=== PATIENT | female | born 1975 | race Caucasian/White ===

== ENCOUNTER → 2022-07-18 | Outpatient (CLI) | payer OTHER ==
--- NOTE | 2022-07-26 08:17 | MM ---
Reason for Exam: Screening (asymptomatic). Last screening mammogram was performed 12 month(s) ago. Patient History: Menarche at age 13. First Full-Term at age 17. Last menstrual period: 07/18/2022 Risk Values: Pamela 5 year model risk: 0.6%. NCI Lifetime model risk: 6.9%. Prior Study Comparison: 06/25/2020 Bilateral MG 3D screening mammo w/cad, [facility]. 06/27/2021 Bilateral MG 3D screening mammo w/cad, [facility]. Tissue Density: The breast tissue is heterogeneously dense. This may lower the sensitivity of mammography. Findings: Analyzed By CAD. There is no suspicious group of microcalcifications or new suspicious mass in either breast. Overall Assessment: Benign, BI-RAD 2 Management: Screening Mammogram of both breasts in 1 year. A clinical breast exam by your physician is recommended on an annual basis and results should be correlated with mammographic findings. Electronically signed and approved by: Yusuf Huber M.D. Radiologis
== END | disposition home or self-care (01) ==
LOC: RADMAMWWP 09:39
PROVIDERS: ATTEND Family Medicine
DX: Z12.31 Encounter for screening mammogram for malignant neoplasm of breast (principal)
CPT/HCPCS: 77063; 77067

== ENCOUNTER 2022-09-18 11:50 | Day surgery (SDC) | payer OTHER ==
[2022-09-13 15:47] VITALS: BMI 22.8
[2022-09-18 12:39] VITALS: TEMP 97.1
[2022-09-18] MEDS ORDERED: LACTATED RINGERS 1,000 ML IV ONE (12:40)
[2022-09-18] MEDS ORDERED: LACTATED RINGERS 1,000 ML IV SCH (13:20)
[2022-09-18] MEDS ORDERED: LIDOCAINE 1% (10MG/ML) FOR IV START INTRADERMA PRN (13:20)
[2022-09-18] MEDS ORDERED: PROPOFOL 10 MG/ML 20 ML VIAL IV ONE (13:22)
[2022-09-18] MEDS ORDERED: LIDOCAINE 2% INJ 20 MG/ML (2 ML VIAL) ONE (13:22)
--- NOTE | 2022-09-18 13:23 | P.GSHP ---
History of Present Illness H&P Date: 09/18/22 Chief Complaint: Positive colon guard test This a 47-year-old female who has had some issues with constipation. Patient had a recent positive colon guard test. She presents today for colonoscopy. Past Medical History Additional Past Medical History / Comment(s): + COLOGARD History of Any Multi-Drug Resistant Organisms: None Reported Past Surgical History: Cholecystectomy, Orthopedic Surgery Additional Past Surgical History / Comment(s): SCREW/PLATE IN LT FOOT R/T BUNION SX Past Anesthesia/Blood Transfusion Reactions: No Reported Reaction Smoking Status: Former smoker - Past Family History Mother Family Medical History: Cancer Medications and Allergies Home Medications Medication Instructions Recorded Confirmed Type ALPRAZolam [Xanax] 0.25 mg PO BID PRN 09/13/22 09/18/22 History Allergies Allergy/AdvReac Type Severity Reaction Status Date / Time No Known Allergies Allergy Verified 09/18/22 12:35 Surgical - Exam Vital Signs Temp Pulse Resp BP Pulse Ox 97.1 F L 77 14 118/76 99 09/18/22 12:37 09/18/22 12:37 09/18/22 12:37 09/18/22 12:37 09/18/22 12:37 - General well developed, well nourished, no distress - Eyes PERRL - ENT normal pinna - Neck no masses - Respiratory normal expansion - Cardiovascular Rhythm: regular - Abdomen Abdomen: soft, non tender Assessment and Plan Assessment: Constipation Positive colon guard test We'll perform colonoscopy
--- NOTE | 2022-09-18 13:38 | P.OP ---
Date of Procedure: 09/18/22 Preoperative Diagnosis: Constipation Positive colon guard test Postoperative Diagnosis: Internal hemorrhoids Normal colon Procedure(s) Performed: Colonoscopy Anesthesia: MAC Surgeon: Richard Gao Pathology: none sent Condition: stable Disposition: PACU Description of Procedure: The patient's placed on the endoscopy table in the lateral position. She received IV sedation. Digital rectal exam was performed. This revealed hemorrhoids. Flexible colonoscope was then placed patient anus and passed throughout the entire colon. The ileocecal valve was visualized. The cecum, ascending and transverse colon appeared normal. The descending and sigmoid colon. Normal. Scope was then brought back the rectum and this appeared normal. Scope withdrawn for patient. Internal hemorrhoids are noted.
[2022-09-18 13:42] VITALS: RESP 16
[2022-09-18 13:59] VITALS: BP 137/89; PULSE 83
== END 2022-09-18 14:30 | disposition home or self-care (01) ==
LOC: ORWHC2ENDO 11:50
PROVIDERS: ATTEND Surgery
DX: K64.8 Other hemorrhoids (principal); F41.9 Anxiety disorder, unspecified; Z90.49 Acquired absence of other specified parts of digestive tract; Z98.890 Other specified postprocedural states; Z87.891 Personal history of nicotine dependence; Z79.83 Long term (current) use of bisphosphonates; Z79.899 Other long term (current) drug therapy
CPT/HCPCS: 81025; 45378; J2704; J2001

== ENCOUNTER → 2023-07-20 | Outpatient (CLI) | payer OTHER ==
--- NOTE | 2023-07-23 08:07 | MM ---
Reason for Exam: Screening (asymptomatic). Last screening mammogram was performed 12 month(s) ago. Patient History: Menarche at age 13. First Full-Term at age 17. Premenopausal. Risk Values: Pamela 5 year model risk: 0.6%. NCI Lifetime model risk: 6.8%. Prior Study Comparison: 06/25/2020 Bilateral MG 3D screening mammo w/cad, [facility]. 06/27/2021 Bilateral MG 3D screening mammo w/cad, [facility]. 07/18/2022 Bilateral MG 3D screening mammo w/cad, [facility]. Tissue Density: The breast tissue is heterogeneously dense. This may lower the sensitivity of mammography. Findings: Analyzed By CAD. There is no suspicious group of microcalcifications or new suspicious mass. Overall Assessment: Negative, BI-RAD 1 Management: Screening Mammogram of both breasts in [address] [facility] will attempt to contact patient to return for supplemental views and ultrasound if indicated. Patient should continue monthly self-breast exams. A clinical breast exam by your physician is recommended on an annual basis. This exam should not preclude additional follow-up of suspicious palpable abnormalities. Note on Pamela scores and lifetime risk: 1. A Pamela score greater than 3% is considered moderate risk. If this is the case, consider specialist referral to assess eligibility for a risk reducing agent. 2. If overall lifetime risk for the development of breast cancer is 20% or higher, the patient may qualify for future screening with alternating mammogram and breast MRI. Electronically signed and approved by: Bo Rodriguez DO
== END | disposition home or self-care (01) ==
LOC: RADMAMWWP 08:57
PROVIDERS: ATTEND Family Medicine
DX: Z12.31 Encounter for screening mammogram for malignant neoplasm of breast (principal)
CPT/HCPCS: 77063; 77067